=== PATIENT | female | born 1955 | race Caucasian/White ===

== ENCOUNTER 2020-12-04 09:32 | Outpatient (CLI) | payer MEDICARE, SELFPAY ==
[2020-12-04 10:04] LABS: Alanine Aminotransferase 12 U/L (4-35); Alkaline Phosphatase 53 U/L (38-126); Anion Gap 5 mmol/L (8-16); Aspartate Amino Transferase 23 U/L (14-36); Bilirubin,Total 0.5 mg/dL (0.2-1.3); Blood Urea Nitrogen 17 mg/dL (7-17); Calcium 9.2 mg/dL (8.4-10.2); Carbon Dioxide 32 mmol/L (22-30); Chloride 104 mmol/L (98-107); Cholesterol 252 mg/dL (0-200); Estimated Glomerular Filt Rate 55; Glucose 93 mg/dL (65-105); HDL Direct 36 mg/dL; Potassium 4.5 mmol/L (3.4-5.0); Sodium 141 mmol/L (137-145); Triglycerides 125 mg/dL (<150)
[2020-12-04 10:15] LABS: LDL Cholesterol Direct 201 mg/dL
== END 2020-12-04 09:33 | disposition home or self-care (01) ==
PROVIDERS: PCP Family Medicine Adolescent Medicine; Visit Provider Internal Medicine Cardiovascular Disease
DX: E78.5 Hyperlipidemia, unspecified (principal)
CPT/HCPCS: 36415; 80053; 80061

== ENCOUNTER 2021-06-15 09:51 | Outpatient (CLI) | payer MEDICARE, SELFPAY ==
[2021-06-15 10:43] LABS: Alanine Aminotransferase 12 U/L (4-35); Alkaline Phosphatase 54 U/L (38-126); Anion Gap 6 mmol/L (8-16); Aspartate Amino Transferase 21 U/L (14-36); Bilirubin,Total 0.6 mg/dL (0.2-1.3); Blood Urea Nitrogen 14 mg/dL (7-17); Calcium 9.2 mg/dL (8.4-10.2); Carbon Dioxide 27 mmol/L (22-30); Chloride 107 mmol/L (98-107); Cholesterol 149 mg/dL (0-200); Estimated Glomerular Filt Rate > 60; Glucose 91 mg/dL (65-110); HDL Direct 39 mg/dL; Potassium 4.2 mmol/L (3.4-5.0); Sodium 140 mmol/L (137-145); Triglycerides 83 mg/dL (<150)
[2021-06-15 10:53] LABS: LDL Cholesterol Direct 89 mg/dL
== END 2021-06-15 09:52 | disposition home or self-care (01) ==
LOC: ANHLAB 09:56
PROVIDERS: PCP Family Medicine Adolescent Medicine; Visit Provider Internal Medicine Cardiovascular Disease
DX: E78.5 Hyperlipidemia, unspecified (principal)
CPT/HCPCS: 36415; 80053; 80061

== ENCOUNTER 2021-12-27 13:57 | Outpatient (CLI) | payer MEDICARE, SELFPAY ==
--- NOTE | ~2021-12-27 | US_ITS ---
EXAMINATION: US aorta DATE: 12/27/2021 14:44 INDICATION: Abdominal aortic aneurysm without rupture TECHNIQUE: Grayscale, color Doppler, and pulsed Doppler images of the aorta and common iliac arteries were obtained. COMPARISON: None. FINDINGS: The proximal aorta measures 2.1 cm. The mid aorta measures 1.8 cm. Fusiform aneurysm of the distal ao rta measuring up to 3.5 cm maximal AP diameter. The right common iliac artery measures 1.2 cm. The le ft common iliac artery measures 1.2 cm. IMPRESSION: 1. 3.5 cm fusiform infrarenal abdominal aortic aneurysm. Reviewed, dictated and finalized at location B.
== END 2021-12-27 13:58 | disposition home or self-care (01) ==
PROVIDERS: PCP Family Medicine Adolescent Medicine; Visit Provider Internal Medicine Cardiovascular Disease
DX: I71.4 Abdominal aortic aneurysm, without rupture (principal)
CPT/HCPCS: 76775

== ENCOUNTER 2023-01-17 09:52 | Outpatient (CLI) | payer MEDICARE, SELFPAY ==
[2023-01-17 10:44] LABS: Alanine Aminotransferase 17 U/L (6-35); Alkaline Phosphatase 58 U/L (38-126); Anion Gap 4 mmol/L (8-16); Aspartate Amino Transferase 21 U/L (14-36); Bilirubin,Total 0.7 mg/dL (0.2-1.3); Blood Urea Nitrogen 18 mg/dL (7-17); Calcium 8.7 mg/dL (8.4-10.2); Carbon Dioxide 30 mmol/L (22-30); Chloride 104 mmol/L (98-107); Cholesterol 166 mg/dL (0-200); Estimated Glomerular Filt Rate > 60; Glucose 91 mg/dL (65-110); HDL Direct 38 mg/dL; Potassium 3.9 mmol/L (3.4-5.0); Sodium 138 mmol/L (137-145); Triglycerides 93 mg/dL (<150)
[2023-01-17 10:54] LABS: LDL Cholesterol Direct 108 mg/dL
== END 2023-01-17 09:53 | disposition home or self-care (01) ==
PROVIDERS: PCP Family Medicine Adolescent Medicine; Visit Provider Internal Medicine Cardiovascular Disease
DX: E78.5 Hyperlipidemia, unspecified (principal)
CPT/HCPCS: 36415; 80053; 80061

== ENCOUNTER 2023-01-30 08:18 | Outpatient (CLI) | payer MEDICARE, SELFPAY ==
--- NOTE | 2023-02-20 23:44 | WPDSLEEPSTUD ---
Sleep Study Date of Study: 01/30/23 Ordering Provider: Nixon Almeida DO Interpreting Physician: Emelina Aguila MD Sleep Study Type: Polysomnogram Height: 1.5 m Weight: 55.792 kg Body Mass Index: 24.8 Neck Circumference (inches): 14.5 [place]: 2 Reason for Sleep Study Fatigue, nonsretorative sleep, Sleep History Sarah Hutchinson is a 67-year-old woman who has poor sleep with excessive daytime fatigue. She does not awaken from sleep feeling short of breath. She occasionally awakens at night with heartburn, belching or coughing. She frequently snores and it is frequently loud enough that others complain about it. She occasionally has trouble sleeping with a cold. She does not wake up gasping for breath at night. She does not have breathing problems at night reported to her by others. She does not sweat excessively at night or notice her heart pounding or beating irregularly at night. She occasionally falls asleep during the day. She never falls asleep involuntarily or while driving. She does not have loss of muscle tone with strong emotion. She does not have daytime difficulties due to excessive sleepiness. She does not feel paralyzed on waking or falling asleep. She does not have vivid dreamlike scenes on waking or falling asleep. She does not feel afraid to go to sleep. She occasionally has nightmares. She occasionally remembers her dreams. She frequently has racing thoughts. She frequently feels sad or depressed. She frequently has anxiety. She frequently has muscular tension and frequently notices parts of her body jerking. She occasionally kicks at night. She does not have crawling or aching feelings in her legs or any kind of leg pain at night. She does not have morning jaw pain. She occasionally is bothered by pain during the day. She occasionally is awakened by pain at night and wakes up feeling stiff in the morning with sore achy muscles and pain in the neck and spine. She has memory problems and depression. Normal bedtime is 10:00 p.m. typically waking twice during the night to go to the bathroom. Normal wake time is 7:00 a.m.. She she keeps the same schedule on the weekends. She tries to take a nap in the day but short nap lasting 10 or 15 minutes or not refreshing. She is usually drowsy for 3 hours or longer after waking. She feels better in the evening compared to other times of day. Habits: Tobacco half pack per day. Caffeine 2 cups of coffee in the morning, 1 can of Pepsi in the afternoon. Alcohol minimal, 4 5 drinks per year. No recreational substances. [facility] Past Medical History Medical History CAD in [place] artery Chronic obstructive pulmonary disease, unspecified Dyslipidemia Essential hypertension Surgical History Surgical History History of heart artery stent Family History Family History Father Family history of congestive heart failure, Onset Age: 70 Other Acute myocardial infarction Social History Social History Smoking packs per day: 0.5 Smoking cigarettes per day: 10.0 Smoking status: Current every day smoker Alcohol intake: current Medications Home Medications Medication Instructions Recorded Confirmed Type alendronate 70 mg tablet 70 mg PO WEEKLY 08/14/19 01/23/23 History aspirin 81 mg tablet,delayed 81 mg PO DAILY 08/14/19 01/23/23 History release calcium carbonate 600 mg calcium 600 mg PO DAILY 08/14/19 01/23/23 History (1,500 mg) tablet (Calcium) evolocumab 420 mg/3.5 mL See Rx Instructions .Route 06/21/22 01/23/23 Rx subcutaneous wearable injector .COMPLEX #3.5 mL (Repatha Pushtronex) metoprolol tartrate 25 mg tablet See Rx Instructions .Route 07/25/22 01/23/23 Rx .COMPLEX #180 tabs citalopram 20 mg tabl
[2023-02-21 08:26] VITALS: BMI 24.8
--- NOTE | 2023-08-14 15:37 | SLEEP ---
new calls [phone]
== END 2023-01-31 06:49 | disposition home or self-care (01) ==
LOC: ANHCSM 08:21
PROVIDERS: PCP Family Medicine Adolescent Medicine; Visit Provider Internal Medicine Cardiovascular Disease
DX: G47.33 Obstructive sleep apnea (adult) (pediatric) (principal); I10 Essential (primary) hypertension; I25.10 Atherosclerotic heart disease of native coronary artery without angina pectoris; J44.9 Chronic obstructive pulmonary disease, unspecified; E78.5 Hyperlipidemia, unspecified; F17.210 Nicotine dependence, cigarettes, uncomplicated
CPT/HCPCS: 95810

== ENCOUNTER 2023-02-02 07:35 | Outpatient (CLI) | payer MEDICARE, SELFPAY ==
--- NOTE | ~2023-02-02 | US_ITS ---
EXAMINATION: US aorta DATE: 02/02/2023 08:35 CDT INDICATION: Abdominal aortic aneurysm. Hypertension. High cholesterol. Smoking history. TECHNIQUE: Grayscale, color Doppler, and pulsed Doppler images of the aorta and common iliac arteries were obtained. COMPARISON: Ultrasound dated 12/27/2021. FINDINGS: The proximal aorta measures 1.8 cm greatest sagittal dimension. The mid aorta measures 1.8 cm greates t sagittal dimension. The distal aorta measures 3.4 cm greatest sagittal dimension. The right common internal iliac artery measures 0.8 cm. The left common iliac artery measures 1 cm. IMPRESSION: 1. Stable infrarenal abdominal aortic aneurysm measuring 3.4 cm. Reviewed, dictated and finalized at location L.
== END 2023-02-02 07:36 | disposition home or self-care (01) ==
PROVIDERS: PCP Family Medicine Adolescent Medicine; Visit Provider Internal Medicine Cardiovascular Disease
DX: I71.40 Abdominal aortic aneurysm, without rupture, unspecified (principal)
CPT/HCPCS: 76775

== ENCOUNTER 2023-04-07 08:12 | Outpatient (CLI) | payer MEDICARE, SELFPAY ==
--- NOTE | 2023-05-02 15:53 | WPDSLEEPSTUD ---
Sleep Study Date of Study: 04/07/23 Ordering Provider: CORAZON Tinoco Interpreting Physician: Emelina Aguila MD Sleep Study Type: CPAP Titration Height: 1.6 m Weight: 55.338 kg Body Mass Index: 21.6 Neck Circumference (inches): 14.5 [place]: 2 Reason for Sleep Study * mild obstructive sleep apnea, May basic PSG AHI 9.8, desaturaiton to 78%. Patient presents for CPAP titration. Sleep History Sarah Hutchinson is a 67-year-old woman who has poor sleep with excessive daytime fatigue. She does not awaken from sleep feeling short of breath.? She occasionally awakens at night with heartburn, belching or coughing.? She frequently snores and it is frequently loud enough that others complain about it.? She occasionally has trouble sleeping with a cold.? She does not wake up gasping for breath at night.? She does not have breathing problems at night reported to her by others.? She does not sweat excessively at night or notice her heart pounding or beating irregularly at night.? She occasionally falls asleep during the day.? She never falls asleep involuntarily or while driving.? She does not have loss of muscle tone with strong emotion.? She does not have daytime difficulties due to excessive sleepiness.? She does not feel paralyzed on waking or falling asleep.? She does not have vivid dreamlike scenes on waking or falling asleep.? She does not feel afraid to go to sleep.? She occasionally has nightmares.? She occasionally remembers her dreams.? She frequently has racing thoughts.? She frequently feels sad or depressed.? She frequently has anxiety.? She frequently has muscular tension and frequently notices parts of her body jerking.? She occasionally kicks at night.? She does not have crawling or aching feelings in her legs or any kind of leg pain at night.? She does not have morning jaw pain.? She occasionally is bothered by pain during the day.? She occasionally is awakened by pain at night and wakes up feeling stiff in the morning with sore achy muscles and pain in the neck and spine.? She has memory problems and depression. Normal bedtime is 10:00 p.m. typically waking twice during the night to go to the bathroom.? Normal wake time is 7:00 a.m..? She she keeps the same schedule on the weekends.? She tries to take a nap in the day but short nap lasting 10 or 15 minutes or not refreshing.? She is usually drowsy for 3 hours or longer after waking.? She feels better in the evening compared to other times of day. Habits: ? Tobacco half pack per day.? Caffeine 2 cups of coffee in the morning, 1 can of Pepsi in the afternoon.? Alcohol minimal, 4 5 drinks per year.? No recreational substances. [facility] Past Medical History Medical History CAD in [place] artery Chronic obstructive pulmonary disease, unspecified Dyslipidemia Essential hypertension Obstructive sleep apnea (01/2023) Personal history of nicotine dependence Surgical History Surgical History History of heart artery stent Family History Family History Father Family history of congestive heart failure, Onset Age: 70 Other Acute myocardial infarction Social History Social History Smoking packs per day: 0.5 Smoking cigarettes per day: 10.0 Smoking status: Current every day smoker Alcohol intake: current Alcohol use details: socially maybe a few times a year Substance use: never Substance use type: does not use Living arrangements: with family Additional living arrangements comments: lives with her son. Occupation/Education: retired Gender identity (if verbalized by the patient): Female Medications Home Medications Medication Instructions Recorded Confirmed Type aspirin 81 mg tablet,delayed 81 mg PO DAILY 08/14/19 03/24/23 H
[2023-05-02 16:14] VITALS: BMI 21.6
== END 2023-04-08 07:21 | disposition home or self-care (01) ==
LOC: ANHCSM 08:13
PROVIDERS: PCP Family Medicine Adolescent Medicine; Visit Provider Physician Assistant
DX: G47.33 Obstructive sleep apnea (adult) (pediatric) (principal)
CPT/HCPCS: 95811

== ENCOUNTER 2023-04-21 12:27 | Outpatient (CLI) | payer MEDICARE, SELFPAY ==
--- NOTE | ~2023-04-21 | CT_ITS ---
EXAMINATION: CT lung screening DATE: 04/21/2023 14:02 INDICATION: Personal history of nicotine dependence TECHNIQUE: Computed tomography (CT) of the chest was performed without intravenous contrast. The dose -length product was 77.96 mGy-cm. Automated exposure control and iterative reconstruction technique w ere employed. COMPARISON: Chest x-ray dated 02/09/2017 FINDINGS: No thoracic lymphadenopathy. No significant pleural effusion. Small pericardial effusion. T here is coronary atherosclerosis. Large left renal cyst measures 7.5 cm. There is atherosclerosis of the aorta and coronary arteries. Mild emphysema. No endobronchial lesions. No focal airspace consolid ation. No pneumothorax. There are small calcified granulomas in the left lung. There is a 1-2 mm nodu le in the left upper lobe, too small to characterize for calcification. IMPRESSION: 1. Lung-RADS category 2: Benign appearance or behavior. Continue annual screening with noncontrast lo w-dose chest CT in 12 months. Reviewed, dictated and finalized at location A. IMPRESSION: 1. Lung-RADS category 2: Benign appearance or behavior. Continue annual screeni ng with noncontrast low-dose chest CT in 12 months.
--- NOTE | 2023-04-22 13:36 | P.PCNPFT_ITS ---
PFT Procedure Performed PFT Procedure Performed Spirometry with Pre/Post Bronchodilator Plethysmography (Lung Vol) Diffusing Cap (DLCO) Flow Vol Loop PFT Interpretation This is a pulmonary function test with pre and post-bronchodilator spirometry, plethysmography and diffusing capacity. The test was performed and results interpreted in accordance with the 2019 and 2005 ATS/ERS Task Force guidelines respectively using the Global Lung Function Initiative-2012 reference equations. Patient demonstrated good effort and cooperation. Reproducibility criteria were met. The quality of the pre bronchodilator spirometry maneuver was Grade A and post bronchodilator spirometry maneuver was Grade A. Findings: Spirometry: The contour the inspiratory and expiratory flow tracing are normal. The pre bronchodilator FVC is 2.40 L, 100% predicted. The pre bronchodilator FEV1 is 1.80 L, 95% predicted. The pre bronchodilator FEV1: FVC ratio 75%. The post bronchodilator FVC is 2.46 L, representing a 3% increase. The post bronchodilator FEV1 is 1.93 L, representing a 7% increase. The post bronchodilator at the FEV1: FVC ratio 78%. Plethysmography: The total lung capacity is 4.29 L, 99% predicted. The functional residual capacity is 2.31 L, 95% predicted. The residual volume is 1.88 L, 98% predicted. Diffusing capacity: The diffusing capacity unadjusted for hemoglobin and carboxyhemoglobin is 17.2, 92% predicted. The diffusing capacity adjusted for alveolar volume is 4.92, 109% predicted. In comparison to previous pulmonary function testing on 06/27/2016 in which only a pre bronchodilator spirometry was performed the pre bronchodilator FVC is unchanged from 2.72 L to 2.40 L. The pre bronchodilator FEV1 is unchanged from 2.09 L to 1.80 L. The total lung capacity is unchanged from 4.76 L to 4.29 L. The functional residual capacity is decreased from 2.80 L to 2.31 L. The residu al volume is unchanged from 1.91 L to 1.88 L. The diffusing capacity unadjusted for hemoglobin and carboxyhemoglobin is unchanged from 18.4 to 17.2. The diffusing capacity adjusted for alveolar volume is unchanged from 4.69 to 4.92. Impression: The spirometry is normal without evidence of an obstructive abnormality. There is no significant improvement after inhaling a single dose of albuterol. The lung volumes are normal. The diffusing capacity is normal. In comparison to previous pulmonary function study on 06/27/2016 there has been a greater than anticipated time dependent decrease in the functional residual capacity with no significant change in the FVC, FEV1, total lung capacity, residual volume or diffusing capacity. Clinical correlation is recommended.
--- NOTE | 2023-04-22 13:41 | WPDSIXMINUTE ---
Six Minute Walk Procedure Procedure Performed Pulmonary Stress Test (6 min walk) Six Minute Walk Six Minute Walk: This is a 6 minute walk test. The test was performed and interpreted in accordance with the 2014 ERS/ATS task force guidelines. Findings: The patient's resting room air oxygen saturation measured by pulse oximetry was 96% and heart rate was 63 bpm. Patient ambulated for 396 meters and oxygen saturation remained 95 to 98%. Heart rate at the end of the study was 74 bpm. The patient did not qualify for supplemental oxygen at rest or with ambulation. There are no prior studies for comparison.
== END 2023-04-21 12:28 | disposition home or self-care (01) ==
LOC: ANHPFT 12:29
PROVIDERS: PCP Family Medicine Adolescent Medicine; Visit Provider Physician Assistant
DX: Z12.2 Encounter for screening for malignant neoplasm of respiratory organs (principal); F17.210 Nicotine dependence, cigarettes, uncomplicated; J44.9 Chronic obstructive pulmonary disease, unspecified
CPT/HCPCS: 71271; 94060; 94618; 94726; 94729

== ENCOUNTER 2023-05-31 10:23 | Outpatient (CLI) | payer MEDICARE, SELFPAY ==
--- NOTE | 2023-05-31 10:38 | ECG_ITS ---
Measurements Intervals [place] Rate: 53 P: 37 RI: 150 QRS: 29 QRSD: 80 T: -7 QT: 395 QTc: 371 Interpretive Statements SINUS BRADYCARDIA BORDERLINE ST-T WAVE ABNORMALITY- INFERIOR LEADS BASELINE ARTIFACT- I, II, III, AVR, AVL, AVF BORDERLINE ECG NO PREVIOUS ECG AVAILABLE FOR COMPARISON Electronically Signed On 05-31-2023 11:16:22 CDT by Nixon Almeida D.O.
== END 2023-05-31 10:24 | disposition home or self-care (01) ==
PROVIDERS: PCP Family Medicine Adolescent Medicine; Visit Provider Surgery
DX: I10 Essential (primary) hypertension (principal); Z01.818 Encounter for other preprocedural examination; R94.31 Abnormal electrocardiogram [ECG] [EKG]
CPT/HCPCS: 93005

== ENCOUNTER 2023-06-05 01:24 | Day surgery (SDC) | payer MEDICARE, SELFPAY ==
[2023-05-24 13:44] VITALS: BMI 24.5
--- NOTE | 2023-05-24 13:54 | PC.NURSE ---
PRE-OP INSTRUCTIONS - PLEASE READ CAREFULLY Report to the Outpatient Waiting Room, entrance under the green pavilion located off [facility], at time _1000_ on date _06/05/23_. Planned Procedure Time: _1200_. Time changes happen often and if your time is changed the preop area will call you the afternoon before. - You and your visitor will be asked to self-screen and do not enter if you have any COVID symptoms. - A mask is optional within the hospital at this time. Patients may have clear liquids (water, carbonated beverages, clear teas, apple juice) until 3 hours prior to surgery (0900 AM) with a maximum of 20 ounces. - No food from midnight until time of surgery Take the following medications with a SIP of water the morning of surgery: _METOPROLOL_ DO NOT STOP ANY OF YOUR OTHER PRESCRIPTION MEDICATIONS PRIOR TO SURGERY ?EXCEPT THE FOLLOWING Medications to discontinue per physician __NONE__, Date to take last dose Please no make-up, nail jordanian, hairspray, perfume, deodorant, or body powder the day of surgery. No jewelry (including any body piercings) or valuables the day of surgery, leave them at home. Please take a shower or bath the night before, or the morning of, surgery with an antibacterial soap. Wear comfortable, loose fitting clothing. - Jewelry must be removed prior to entering the operating room. Rings and piercings that are not removed may be cut off. - The hospital will not accept responsibility for valuables. - Please leave all valuables, including medications, at home the day of surgery. If you are going home after surgery, a licensed driver's license examiner must drive you home. - NO public transportation without another adult if you receive anesthesia. - We recommend that an adult stay with you for 24 hours following discharge. - We also recommend that you do not drive, make important decision, drink alcoholic beverages, or take any drugs that were not prescribed by your health care provider for at least 24 hours after your discharge time. Follow any additional instructions given to you from your surgeon. If you or anyone in your household have experienced Covid symptoms in the past week, please notify your surgeon or the nurse liaison at the phone number below for possible testing. Telephone instructions given to _PATIENT_and asked if any additional questions and then verbalized understanding. Patient advised to call surgeon office or pre surgery nurse liaison [phone] if any additional questions.
[2023-06-05] VITALS (8 sets, daily range): BP systolic 133–168; BP diastolic 63–99; PULSE 59–69; RESP 16–20; TEMP 36.1–36.4; O2SAT 95–100
[2023-06-05] MEDS: LACTATED RINGERS 1,000 ML 30 ML IV CONT (10:00)
--- NOTE | 2023-06-05 11:19 | WPDHPUPDATE1 ---
History and Physical Update Update Date/Time: 06/05/23 11:19 History and Physical has been reviewed, including an updated exam of the patient. There are NO changes in the patient's condition. Risks, benefits, and alternatives have been discussed and questions answered. Patient agrees to proceed with procedure.
--- NOTE | 2023-06-05 11:19 | WPDANESEPPF ---
Anes - Initial Pre Proc Eval Procedure: Operation Date: 06/05/23 12:00 Proposed Procedures p Excisional Biopsy Posterior Neck Mass - Jayna Cloud MD Date/Time: 06/05/23 11:19 Surgeon: Jayna Cloud MD Pre Op Diagnosis: posterior neck mass Patient Data Age: 67 Gender: F Height: 1.5 m Weight: 55.4 kg Last Vital Signs Temp 36.4 C 06/05/23 10:00 Pulse 59 L 06/05/23 10:00 Resp 16 06/05/23 10:00 BP 168/99 H 06/05/23 10:00 Pulse Ox 100 06/05/23 10:00 O2 Del Method Room Air 06/05/23 10:00 Allergies Allergy/AdvReac Type Severity Reaction Status Date / Time No Known Allergies Allergy Verified 06/05/23 10:28 Home Medications Medication Instructions Recorded Confirmed Type aspirin 81 mg tablet,delayed 81 mg PO DAILY 08/14/19 06/05/23 History release citalopram 20 mg tablet See Rx Instructions .Route 10/20/22 05/24/23 Rx .COMPLEX #90 tabs lisinopril 5 mg tablet See Rx Instructions .Route 02/15/23 05/24/23 Rx .COMPLEX #90 tabs alendronate 70 mg tablet 70 mg PO MONTHLY 03/24/23 05/24/23 History atorvastatin 20 mg tablet 20 mg PO DAILY 03/24/23 05/24/23 History metoprolol tartrate 25 mg tablet See Rx Instructions .Route 04/19/23 06/05/23 Rx .COMPLEX #180 tabs evolocumab 420 mg/3.5 mL See Rx Instructions .Route 05/22/23 05/24/23 Rx subcutaneous wearable injector .COMPLEX #1 mL (Repatha Pushtronex) Patient hx anesthesia problems: none Family hx anesthesia problems: none Results Review: All pre-operative results and documents have been reviewed as part of the pre-operative evaluation. [facility] Past Medical History Medical History (Updated 05/19/23 @ 13:31 by Dariela Gomez [facility]) CAD in [place] artery Chronic obstructive pulmonary disease, unspecified Depression with anxiety Dyslipidemia Essential hypertension History of SD (myocardial infarction) Hx of emphysema Obstructive sleep apnea (01/2023) Personal history of nicotine dependence Surgical History Surgical History (Updated 05/19/23 @ 13:35 by Maya Saba MA) History of heart artery stent 2014 History of partial hysterectomy 1985 History of tubal ligation 1981 Family History Family History (Updated 05/19/23 @ 13:15 by Maya Saba MA) Father Family history of congestive heart failure, Onset Age: 70 Other Acute myocardial infarction Cancer Heart disease Hypertension Social History Social History Smoking packs per day: 0.5 Smoking cigarettes per day: 10.0 Years smoked: 40 Smoking pack-years: 20.00 Smoking status: Current every day smoker Tobacco type: cigarettes Second hand tobacco smoke exposure: Yes Alcohol intake: current Alcohol use details: VERY RARE STAES MAYBE COUPLE TIMES A YR Substance use: current Substance use type: marijuana Other substance usage details: 09/26 10MG GUMMY @ NOC Last use: 05/23/23 Lack of Transportation: No Lack of Food: Never True Current Housing: I Have Housing Concerned About Future Housing: No Difficulty Paying Gas/Electric Bills: No Difficulty Paying for Meds: No Currently Unemployed: No Education: High School Diploma/GED Difficulty w/ Childcare or Family Care: No Living arrangements: with family Additional living arrangements comments: LIVES WITH SON RAHDA Occupation/Education: retired Gender identity (if verbalized by the patient): Female Spiritual care concerns: No Anes - Eval Final PreProcedure Day of Procedure 06/05/23 11:19 Patient weight: normal Heart: regular rate and rhythm Lungs: clear to auscultation and normal air movement Airway: Mallampati scale class II Neurological: alert and oriented Last oral intake: >/= 8 hours ASA classification: III Emergent: no Anesthetic plan: proceed Anesthesia type and monitoring: general ETT and standard monitoring Results Review: All pre-operative
[2023-06-05] MEDS: ceFAZolin 2 GM/D5W 50 ML 2 GM/50 ML BAG IVPB (11:42)
[2023-06-05] MEDS: BUPIVACAINE/EPINEPHRINE 0.5% 50 ML VIAL INFILTRATE (12:02)
--- NOTE | 2023-06-05 12:37 | W.PM.PROC2 ---
Procedure Note - Detailed Date of Procedure 06/05/23 Pre-op Diagnosis posterior neck mass measuring approximately 6 x 5 cm Post-op Diagnosis Same Procedure Performed excisional biopsy posterior neck mass measuring approximately 6 x 5 cm most consistent with multi lobular lipoma Surgeon Jayna Cloud MD Anesthesia General and Local Indications 67-year-old female presenting to the office with posterior neck mass. Reports she has had the mass for quite a while and has been slowly growing in size. The patient reports the area is somewhat tender to palpation although she denies previous infections or drainage. Findings 6 x 5 cm posterior neck mass most consistent with multi lobular lipoma Description of Procedure The patient was taken the operating room placed in the prone position. After adequate induction of general anesthesia, the patient was prepped and draped in the normal sterile fashion. A time-out was done to verify the patient's identity, as well as the procedure being performed. Began by localizing the area in and around this posterior neck mass. Once locally anesthetized, I made an incision over the neck mass. This was carried down to the subcutaneous tissue. At this point a multi lobular mass, most likely lipoma, was encountered in the subcutaneous tissue. This mass did extend down to the posterior neck muscles, but did not extend into the fascia or muscle. I was able to excise the entirety of the mass in full. This measured to approximately 6 x 5 cm and will be sent to pathology for further review. I then copiously irrigated the cavity and further local anesthetic was placed. Hemostasis was noted in the cavity. I then closed the subcutaneous tissue with 3-0 Vicryl suture. The skin was closed with 4-0 Monocryl subcuticular suture. Dermabond was placed on the wound. The patient tolerated the procedure well and was extubated postoperatively. She will be transferred to the recovery room in stable condition. Estimated Blood Loss 5 Drains No Packing No Pathology Yes Complications No immediate complications Condition Stable Disposition PACU [facility] Billing Surgery - Charge Forward: Surgery Billing
== END 2023-06-05 14:07 | disposition home or self-care (01) ==
PROVIDERS: PCP Family Medicine Adolescent Medicine; Visit Provider Surgery
PROC: (CPT 21552; principal; 2023-06-05 12:00)
DX: R22.1 Localized swelling, mass and lump, neck (principal); I10 Essential (primary) hypertension; I25.10 Atherosclerotic heart disease of native coronary artery without angina pectoris; F41.8 Other specified anxiety disorders; E78.5 Hyperlipidemia, unspecified; I25.2 Old myocardial infarction; J43.9 Emphysema, unspecified; G47.33 Obstructive sleep apnea (adult) (pediatric); Z79.82 Long term (current) use of aspirin; Z95.5 Presence of coronary angioplasty implant and graft; F17.210 Nicotine dependence, cigarettes, uncomplicated; D17.0 Benign lipomatous neoplasm of skin and subcutaneous tissue of head, face and neck
CPT/HCPCS: 21552; 88304; A9270; J0690; J1100; J2250; J2405; J2704; J3010; J7120

== ENCOUNTER 2023-07-25 12:41 | Outpatient (CLI) | payer MEDICARE, SELFPAY ==
--- NOTE | ~2023-07-25 | CT_ITS ---
EXAMINATION: CT abdomen pelvis w con DATE: 07/25/2023 13:31 INDICATION: Renal cysts. TECHNIQUE: Computed tomography (CT) of the abdomen and pelvis was performed with 100 cc Omnipaque 350 intravenous contrast. The dose-length product was 273.82 mGy-cm. Automated exposure control and iter ative reconstruction technique were employed. COMPARISON: CT dated 04/21/2023. FINDINGS: Lung bases are unremarkable. Heart size normal. No significant pleural or pericardial effus ion. There is heterogeneous appearance to the liver, likely related to contrast bolus timing. The spl een, pancreas, adrenal glands are unremarkable. There are bilateral renal cysts, largest in the left kidney measuring 7.5 cm. There is an infrarenal abdominal aortic saccular aneurysm measuring 3.7 cm. No lymphadenopathy. Nonobstructive bowel gas pattern. There are small low-density lesions in the live r, most likely benign cysts or hemangiomas. IMPRESSION: 1. Multiple bilateral renal cysts, largest measuring 7.5 cm and the left kidney. 2: Heterogeneous liver appearance, possibly related to contrast bolus timing. Consider correlation w ith ultrasound to exclude underlying mass. 3: Infrarenal abdominal aortic saccular aneurysm measuring 3.7 cm. Reviewed, dictated and finalized at location A. IMPRESSION: 1. Multiple bilateral renal cysts, largest measuring 7.5 cm and the left kidney . 2: Heterogeneous liver appearance, possibly related to contrast bolus timing. Consider correlation with ultrasound to exclude underlying mass. 3: Infrarenal abdominal aortic saccular aneurysm measuring 3.7 cm.
[2023-07-25 13:23] LABS: Estimated Glomerular Filt Rate 55
== END 2023-07-25 12:42 | disposition home or self-care (01) ==
PROVIDERS: PCP Family Medicine Adolescent Medicine; Visit Provider Nurse Practitioner Family
DX: N28.1 Cyst of kidney, acquired (principal); I71.43 Infrarenal abdominal aortic aneurysm, without rupture
CPT/HCPCS: 74177; Q9967

== ENCOUNTER 2023-08-22 07:54 | Outpatient (CLI) | payer MEDICARE, SELFPAY ==
--- NOTE | ~2023-08-22 | US_ITS ---
Limited Abdominal Sonogram: Real-time sonographic imaging of the right upper quadrant was performed. Clinical History: Abnormal findings of diagnostic imaging of liver Findings: The liver appears normal with no evidence of solid mass lesion or bile duct dilatation. Sm all hepatic cysts noted. Main portal vein demonstrates normal direction of flow. The gallbladder is w ell distended, and appears normal with no evidence of gallstone or wall thickening. The common bile d uct measures 6 mm. The visualized pancreas, aorta, and IVC are unremarkable. Impression: No significant abnormality seen. Reviewed, dictated and finalized at location M. OSIVE OPERATOR Impression: No significant abnormality seen.
== END 2023-08-22 07:55 | disposition home or self-care (01) ==
PROVIDERS: PCP Family Medicine Adolescent Medicine; Visit Provider Nurse Practitioner Family
DX: R93.2 Abnormal findings on diagnostic imaging of liver and biliary tract (principal)
CPT/HCPCS: 76705

== ENCOUNTER 2023-09-13 08:09 | Outpatient (CLI) | payer MEDICARE, SELFPAY ==
--- NOTE | ~2023-09-13 | NM_ITS ---
EXAMINATION: NM maurice stress w perfusion DATE: 09/13/2023 10:15 INDICATION: Chest pain TECHNIQUE: Rest images were obtained following intravenous administration of 9.5 mCi Tc99m tetrofosmi n (Myoview). The patient was infused intravenously with Lexiscan (Regadenoson). Then, 31.2 mCi Tc99m tetrofosmin (Myoview) was administered intravenously, and stress images were obtained. Data was recon structed into short axis and horizontal and vertical long axis SPECT images. Gated SPECT images were also obtained. COMPARISON: None. FINDINGS: There is no definite reversible or fixed perfusion abnormality to suggest ischemia or infar ction. There is normal left ventricular chamber size, wall motion and ejection fraction. Left ventr icular ejection fraction measures >70%. IMPRESSION: 1. Normal myocardial perfusion at rest and during stress. 2. Left ventricular ejection fraction measuring >70%. Reviewed, dictated and finalized at location A. GASTROENTEROLOGY
--- NOTE | 2023-09-13 08:33 | EST_ITS ---
Patient Info Name: Sarah Hutchinson Age: 67 years : 1955 Gender: Female Ht: 59 in Wt: 122 lbs BSA: 1.53 m2 HR: 55 bpm BP: 144 / 83 mmHg Heart Rhythm: Sinus Rhythm Exam Date: 09/13/2023 9:03 AM Exam Location: Echo Lab Patient Status: Outpatient Admit Date: 09/13/2023 Staff Ordering Physician: Nixon Almeida DO Attending Provider: Nixon Almeida DO Exercise Technologist: Laura Quintero CT Exercise Physician: Nixon Almeida DO Exam Type: CA stress maurice w NM Study Info Indications R07.89 - Other chest pain A regadenoson stress test was performed. Summary 1. 1. Negative lexiscan stress test for ischemic ST changes by ECG criteria. 2. 2. Baseline hypertension. 3. 3. Nuclear scan to follow and will be reported separately. Please correlate with it. 4. 4. Patient informed of the above results. Protocol: Lexiscan Stress ECG Details Stage: REST Duration (min): 1 min : 3 sec HR (bpm): 55 SBP (mmHg): 144 DBP (mmHg): 83 Stage: REST Duration (min): 9 min : 12 sec HR (bpm): 56 SBP (mmHg): 144 DBP (mmHg): 83 Stage: STAGE 1 Duration (min): 1 min : 0 sec HR (bpm): 75 SBP (mmHg): 163 DBP (mmHg): 75 Stage: RECOVERY Duration (min): 1 min : 0 sec HR (bpm): 92 SBP (mmHg): 163 DBP (mmHg): 75 Stage: RECOVERY Duration (min): 2 min : 0 sec HR (bpm): 93 SBP (mmHg): 163 DBP (mmHg): 75 Stage: RECOVERY Duration (min): 3 min : 0 sec HR (bpm): 91 SBP (mmHg): 196 DBP (mmHg): 97 Stage: RECOVERY Duration (min): 4 min : 0 sec HR (bpm): 84 SBP (mmHg): 196 DBP (mmHg): 97 Stage: RECOVERY Duration (min): 5 min : 0 sec HR (bpm): 77 SBP (mmHg): 196 DBP (mmHg): 97 Stage: RECOVERY Duration (min): 5 min : 41 sec HR (bpm): 78 SBP (mmHg): 201 DBP (mmHg): 96 Rest HR: 56 bpm Peak HR: 94 bpm Rest Sys BP: 144 mmHg Peak Sys BP: 201 mmHg Max Pred HR: 151 bpm % Max Pred HR: 62 % Target HR: 128 bpm Max RPP: 18,894 bpm*mmHg Termination Reason: Completed protocol Cardiac Symptoms: Shortness of breath, Nausea Total Time: 1 min : 0 sec Rest Bui BP: 83 mmHg Peak Bui BP: 96 mmHg Total Dose: 0.4 mg Resting ECG Sinus bradycardia. Stress ECG Borderline ST abnormality. Arrhythmias None. Report Signatures
== END 2023-09-13 08:10 | disposition home or self-care (01) ==
LOC: ANHIMG 08:11
PROVIDERS: PCP Family Medicine Adolescent Medicine; Visit Provider Internal Medicine Cardiovascular Disease
DX: R07.89 Other chest pain (principal); I10 Essential (primary) hypertension
CPT/HCPCS: 78452; 93017; A9502; J2785

== ENCOUNTER 2024-02-15 09:07 | Outpatient (CLI) | payer MEDICARE, SELFPAY ==
[2024-02-15 09:42] LABS: Alanine Aminotransferase 17 U/L (6-35); Alkaline Phosphatase 71 U/L (38-126); Anion Gap 4 mmol/L (4-12); Aspartate Amino Transferase 25 U/L (14-36); Bilirubin,Total 0.7 mg/dL (0.2-1.3); Blood Urea Nitrogen 15 mg/dL (7-17); Calcium 9.5 mg/dL (8.4-10.2); Carbon Dioxide 30 mmol/L (22-30); Chloride 107 mmol/L (98-107); Cholesterol 179 mg/dL (0-200); Estimated Glomerular Filt Rate 55; Glucose 93 mg/dL (65-110); HDL Direct 36 mg/dL; Potassium 4.2 mmol/L (3.4-5.0); Sodium 141 mmol/L (137-145); Triglycerides 115 mg/dL (<150)
[2024-02-15 09:53] LABS: LDL Cholesterol Direct 124 mg/dL
== END 2024-02-15 09:08 | disposition home or self-care (01) ==
LOC: ANHLAB 09:10
PROVIDERS: PCP Family Medicine Adolescent Medicine; Visit Provider Internal Medicine Cardiovascular Disease
DX: E78.5 Hyperlipidemia, unspecified (principal)
CPT/HCPCS: 36415; 80053; 80061

== ENCOUNTER 2024-04-22 09:26 | Outpatient (CLI) | payer MEDICARE, SELFPAY ==
--- NOTE | ~2024-04-22 | CT_ITS ---
CT Scan of the Chest without Contrast: Clinical Indication: Lung cancer screening, nicotine dependence Technique: Contiguous sections were acquired throughout the chest without intravenous contrast. Dose reduction technique was used on this scan by utilizing automated exposure control and iterative recon struction technique. The dose-length product (DLP) was 57.45 mGy-cm. COMPARISON: 04/21/2023 Findings: There is no evidence of any significant mediastinal, hilar or axillary lymphadenopathy. There are ext ensive atherosclerotic calcifications of the aorta and coronary arteries. There is no evidence of pleural or pericardial effusion. Stable cystic-appearing lesion right upper lobe. No pulmonary nodules or infiltrates are noted. Images through the upper abdomen reveal no abnormalities. Impression: Lung RADS 2: Benign appearance. 12 month follow-up screening CT advised. Reviewed, dictated and finalized at [facility]. Impression: Lung RADS 2: Benign appearance. 12 month follow-up screening CT advised.
== END 2024-04-22 09:27 | disposition home or self-care (01) ==
LOC: ANHIMG 09:26
PROVIDERS: PCP Family Medicine Adolescent Medicine; Visit Provider Physician Assistant
DX: Z12.2 Encounter for screening for malignant neoplasm of respiratory organs (principal); Z87.891 Personal history of nicotine dependence
CPT/HCPCS: 71271

== ENCOUNTER 2025-04-28 11:28 | Outpatient (CLI) | payer MEDICARE, SELFPAY ==
--- NOTE | ~2025-04-28 | CT_ITS ---
CT Scan of the Chest without Contrast: Clinical Indication: Lung cancer screening, nicotine dependence Technique: Contiguous sections were acquired throughout the chest without intravenous contrast. Dose reduction technique was used on this scan by utilizing automated exposure control and iterative recon struction technique. The dose-length product (DLP) was 61.24 mGy-cm. COMPARISON: 04/22/2024 Findings: There is no evidence of any significant mediastinal, hilar or axillary lymphadenopathy. Coronary celia ry calcifications are present. There is no evidence of pleural or pericardial effusion. Stable cystic area in the right upper lobe. No pulmonary nodules or infiltrates are noted. Images through the upper abdomen reveal no abnormalities. Impression: Lung RADS 1: Negative. 12 month follow-up screening CT advised. Reviewed, dictated and finalized at location . Impression: Lung RADS 1: Negative. 12 month follow-up screening CT advised.
--- OUTSIDE RECORDS SUMMARY | 2025-04-28 12:00 | XMS_ITS | Referral Summary ---
Author Organization [facility] [address] Address [address] [place] [address] Care Team Providers Care Ranch Cook Name Role Phone Branden Styles MD Primary Care Prov ider Allergies No known active allergies Medications aspirin (ASPIRIN LOW DOSE) 81 mg tablet take 1 tablet by oral route every day 0 0 6 Active alendronate (FOSAMAX) 70 mg tablet take 1 tablet by oral route every week in the morning, at least 30 min before first food, beverage, or medication of day 13 4 7 Active citalopram (CeleXA) 20 mg tablet take 1 tablet by oral route every day 0 0 5 Active metoprolol (LOPRESSOR) 25 mg tablet take 0.5 tablet by oral route 2 times every day 90 3 5 Active atorvastatin (LIPITOR) 20 mg tablet TAKE ONE TABLET BY MOUTH ONCE DAILY 30 tablet 5 7 Active CALCIUM CARBONATE (CALCIUM 600 ORAL) Take by mouth daily. Active ezetimibe (ZETIA) 10 mg tablet Take 1 tablet (10 mg total) by mouth daily. 90 tablet 1 7 Active evolocumab 420 mg/3.5 mL wearable injector Inject 420 mg under the skin every 30 (thirty) days. 1 cartridge 11 8 Active atorvastatin (LIPITOR) 20 mg tablet TAKE ONE TABLET BY MOUTH ONCE DAILY 30 tablet 1 8 Active Active Problems Problem Noted Date Diagnosed Date Chronic coronary artery disease 06/13/2016 Overview (12/30/2016): CAD Hypercholesterolemia 06/13/2016 Overview (12/30/2016): Hypercholesterolemia Social History Tobacco Use Types Packs/Day Years Used Date Smoking Tobacco: Light Smoker Cigarettes Smokeless Tobacco: Never Comments:Smoking History Pac ks/day: 0.5 Packs Alcohol Use Standard Drinks/Week Comments Yes 0 (1 standard drink = 0.6 oz pur e alcohol) Rare Comments No Sex and Gender Information Value Date Recorded Sex Assigned at Not on file Legal Sex Female 3:07 AM LICENSED VOCATIONAL NURSE Gender Identity Not on file Sexual Orientation Not on file Last Filed Vital Signs Vital Sign Reading Time Taken Comments Blood Pressure 106/68 10/30/2017 1:52 PM LICENSED VOCATIONAL NURSE Pulse 61 09/06/2017 8:58 AM LICENSED VOCATIONAL NURSE Temperature - - Respiratory Rate 16 03/29/2017 8:42 AM CDT Oxygen Saturation 96% 09/06/2017 8:58 AM LICENSED VOCATIONAL NURSE Inhaled Oxygen Concentration - - Weight 54 kg (119 lb) 10/30/2017 1:52 PM LICENSED VOCATIONAL NURSE Height 149.9 cm (4' 11) 10/30/2017 1:52 PM LICENSED VOCATIONAL NURSE Body Mass Index 24.04 10/30/2017 1:52 PM LICENSED VOCATIONAL NURSE Plan of Treatment Not on file Insurance [facility] Care Teams Ranch Cook Relationship Specialty Start Date End Date Branden Styles MD [address] [place] [address] PCP - General 12/23/16
--- OUTSIDE RECORDS SUMMARY | 2025-04-28 12:00 | XMS_ITS | Clinical Summary ---
Author Organization [facility] [address] Address [address] [place] [address] Care Team Providers Care Investigator Utility Bill Complaints Name Role Phone Branden Styles MD Primary [...] (12/30/2016): CAD Hypercholesterolemia 06/13/2016 Overview (12/30/2016): Hypercholesterolemia Surgical History Surgery Date Site/Laterality Comments TOTAL ABDOMINAL HYSTERECTOMY Hysterectomy, total OTHER SURGICAL HISTORY 1972 : OTHER SURGICAL HISTORY 1979 : OTHER SURGICAL HISTORY 1981 : OTHER SURGICAL HISTORY Heart attack 2 stents placed OTHER SURGICAL HISTORY Acute myocardial infarction: Stents x 2 OTHER SURGICAL HISTORY 1985 Severe dysplasia: Vaginal Hyst Medical History Medical History Date Comments Ischemic heart disease Ischemic heart disease Hx Other Medical anxiety Hx Other Medical ; Outc ome: 4lb(s) 14 oz Male Hx Other Medical ; Outc ome: 7lb(s) 9 oz Male Hx Other Medical ; Outc ome: 7lb(s) 10 oz Acute myocardial infarction 02/14/2015 Acut e myocardial infarction Hx Other Medical Severe dysplasi a; Comments: JRB 06/13/2016 - Hx Other Medical 2016 Osteoporosis Family History Medical History Relation Name Comments Coronary artery disease Brother 1 Amol nary artery disease; Cancer Brother 2 Cancer, unknown ; Heart failure Father Congestive hea rt failure; Other Mother and sister Alive and well; /thyriod problems; /stomach, bowel or gallbladder problems; Coronary artery disease Sister 1 Amol nary artery disease; Hyperlipidemia Sister 2 and brother high choleste rol; Rheumatic fever Sister 3 Rheumatic fe erna; Other Sister 4 brain anerysm; Coronary artery disease Son 1 Amol nary artery disease; Other Son 2 Downs syndrome; Relation Name Status Comments Brother 1 Brother 2 Father (Age 70) Mother and sister Alive Sister 1 Sister 2 and brother Sister 3 Sister 4 Son 1 Son 2 Social History Tobacco Use Types Packs/Day Years Used Date Smoking Tobacco: Light Smoker Cigarettes Smokeless Tobacco: Never Comments:Smoking History Pac ks/day: 0.5 Packs Alcohol Use Standard Drinks/Week Comments Yes 0 (1 standard drink = 0.6 oz pur e alcohol) Rare Comments No Sex and Gender Information Value Date Recorded Sex Assigned at Not on file Legal Sex Female 3:07 AM CARTON WAXING MACHINE OPERATOR Gender Identity Not on file Sexual Orientation Not on file Obstetrics History Para Term AB IAB SAB Ectopic Multiple Livin g Live Births 4 3 3 3 Date Outcome GA Total Labor Labor/2nd/3rd Weight Sex Type Anes PTL Cornelia A1 A5 Name Clin Para Para Para Last Filed Vital Signs Vital Sign Reading Time Taken Comments Blood Pressure 106/68 10/30/2017 1:52 PM CARTON WAXING MACHINE OPERATOR Pulse 61 09/06/2017 8:58 AM CARTON WAXING MACHINE OPERATOR Temperature - - Respiratory Rate 16 03/29/2017 8:42 AM CDT Oxygen Saturation 96% 09/06/2017 8:58 AM CARTON WAXING MACHINE OPERATOR Inhaled Oxygen Concentration - - Weight 54 kg (119 lb) 10/30/2017 1:52 PM CARTON WAXING MACHINE OPERATOR Height 149.9 cm (4' 11) 10/30/2017 1:52 PM CARTON WAXING MACHINE OPERATOR Body Mass Index 24.04 10/30/2017 1:52 PM CARTON WAXING MACHINE OPERATOR Plan of Treatment Not on file Insurance [facility] Care Teams Investigator Utility Bill Complaints Relationship Specialty Start Date End Date Branden Styles MD [address] [place] [address] PCP - General 12/23/16
== END 2025-04-28 11:29 | disposition home or self-care (01) ==
LOC: ANHIMG 11:29
PROVIDERS: PCP Family Medicine Adolescent Medicine; Visit Provider Physician Assistant
DX: Z12.2 Encounter for screening for malignant neoplasm of respiratory organs (principal); Z87.891 Personal history of nicotine dependence
CPT/HCPCS: 71271

== ENCOUNTER 2025-06-02 09:00 | Outpatient (CLI) | payer MEDICARE, SELFPAY ==
--- OUTSIDE RECORDS SUMMARY | 2025-06-02 09:09 | XMS_ITS | Clinical Summary ---
Author Organization [facility] [address] Address [address] [place] [address] Care Team Providers Care Weed Inspector Name Role Phone Branden Styles MD Primary [...] on file Legal Sex Female 3:07 AM TWISTER DOFFER Gender Identity Not on file Sexual Orientation Not on file Obstetrics History Para Term AB IAB SAB Ectopic Multiple Livin g Live Births 4 3 3 3 Date Outcome GA Total Labor Labor/2nd/3rd Weight Sex Type Anes PTL Cornelia A1 A5 Name Clin Para Para Para Last Filed Vital Signs Vital Sign Reading Time Taken Comments Blood Pressure 106/68 10/30/2017 1:52 PM TWISTER DOFFER Pulse 61 09/06/2017 8:58 AM TWISTER DOFFER Temperature - - Respiratory Rate 16 03/29/2017 8:42 AM CDT Oxygen Saturation 96% 09/06/2017 8:58 AM TWISTER DOFFER Inhaled Oxygen Concentration - - Weight 54 kg (119 lb) 10/30/2017 1:52 PM TWISTER DOFFER Height 149.9 cm (4' 11) 10/30/2017 1:52 PM TWISTER DOFFER Body Mass Index 24.04 10/30/2017 1:52 PM TWISTER DOFFER Plan of Treatment Not on file Insurance [facility] Care Teams Weed Inspector Relationship Specialty Start Date End Date Branden Styles MD PCP - General 12/23/16
[2025-06-02 09:28] LABS: Hematocrit 41.4 % (37.0-47.0); Hemoglobin 13.2 g/dL (12.0-15.0); Immature Granulocyte Percent A 0.3 % (0-0.5); Lymphocytes Absolute Auto 1.73 K/mm3 (0.9-3.2); Mean Corpuscular HGB Conc 31.9 g/dl (32-36); Mean Corpuscular Hemoglobin 28.0 pg (26-34); Mean Corpuscular Volume 87.9 fl (80-100); Nucleated Red Blood Cells Absolute Auto 0.000 K/mm3 (0.0-0.012); Nucleated Red Blood Cells Perc 0.0 % (0.0-0.2); Platelet Count Result 287 k/mm3 (150-375); Red Blood Count 4.71 M/mm3 (4.2-5.4); White Blood Count 8.6 K/mm3 (4.5-10.0)
[2025-06-02 09:46] LABS: Alanine Aminotransferase 14 U/L (6-35); Albumin Level 3.9 g/dL (3.5-5.1); Alkaline Phosphatase 81 U/L (38-126); Anion Gap 6 mmol/L (4-12); Aspartate Amino Transferase 23 U/L (14-36); Bilirubin,Total 0.5 mg/dL (0.2-1.3); Blood Urea Nitrogen 22 mg/dL (7-17); Calcium 9.5 mg/dL (8.4-10.2); Carbon Dioxide 27 mmol/L (22-30); Chloride 104 mmol/L (98-107); Cholesterol 249 mg/dL (0-200); Estimated Glomerular Filt Rate 54; Glucose 98 mg/dL (65-110); HDL Direct 32 mg/dL; Potassium 4.5 mmol/L (3.4-5.0); Sodium 137 mmol/L (137-145); Total Protein 7.5 g/dL (6.3-8.2); Triglycerides 75 mg/dL (<150)
[2025-06-02 10:16] LABS: Thyroid Stimulating Hormone Reflex 0.990 uIU/mL (0.465-4.68)
== END 2025-06-02 09:01 | disposition home or self-care (01) ==
PROVIDERS: PCP Family Medicine Adolescent Medicine; Referring Provider Internal Medicine Cardiovascular Disease; Visit Provider Family Medicine
DX: E78.00 Pure hypercholesterolemia, unspecified (principal); I10 Essential (primary) hypertension; R53.83 Other fatigue
CPT/HCPCS: 36415; 80053; 80061; 84443; 85025